=== PATIENT | male | born 1945 | race Caucasian/White ===

== ENCOUNTER 2023-06-20 07:56 | Emergency (ER) | payer MEDICARE ==
[~2023-06-20] VITALS: Ht 180.3 cm; Wt 110.0 kg
[2023-06-20 08:19] VITALS: BP 122/64
[2023-06-20] MEDS ORDERED: AMLO10 PO (08:35)
[2023-06-20] MEDS ORDERED: CATAPRES0.1 MG PO (08:35)
[2023-06-20] MEDS ORDERED: HYDCHL25 PO (08:35)
[2023-06-20] MEDS ORDERED: PRAV20 PO (08:35)
[2023-06-20] MEDS ORDERED: LISI20 PO (08:36)
[2023-06-20] MEDS ORDERED: ASPI325 PO (08:36)
== END 2023-06-20 09:06 | disposition home or self-care (01) ==
LOC: ER 07:56
DX: U07.1 COVID-19 (principal); I10 Essential (primary) hypertension; I25.10 Atherosclerotic heart disease of native coronary artery without angina pectoris; E78.5 Hyperlipidemia, unspecified; Z95.0 Presence of cardiac pacemaker; Z79.899 Other long term (current) drug therapy; Z79.82 Long term (current) use of aspirin
CPT/HCPCS: 99283